=== PATIENT | male | born 1945 | race Caucasian/White ===

== ENCOUNTER 2021-10-10 11:17 | Day surgery (SDC) | payer OTHER ==
[~2021-10-10] VITALS: Ht 167.6 cm; Wt 65.8 kg
[2021-10-10] MEDS ORDERED: LIDOCAINE 2% 100 MG/5 ML UJET TP ONE (13:30)
[2021-10-10] MEDS ORDERED: MIDAZOLAM 2 MG/2 ML VIAL ONE (13:36)
[2021-10-10] MEDS: fentaNYL citrate 0.05 MG/ML VIAL ONE ×2 (13:55→14:30)
[2021-10-10] MEDS ORDERED: EPINEPHrine PFS 0.1 MG/ML SYR IVP ONE (14:52)
== END 2021-10-10 15:18 | disposition home or self-care (01) ==
LOC: MDS 11:17 → MMU 11:17 → MDS 15:18
PROVIDERS: ATTEND Internal Medicine Gastroenterology
DX: R19.5 Other fecal abnormalities (principal); D12.5 Benign neoplasm of sigmoid colon; K57.30 Diverticulosis of large intestine without perforation or abscess without bleeding; I10 Essential (primary) hypertension; Z79.899 Other long term (current) drug therapy; Z20.822 Contact with and (suspected) exposure to COVID-19
CPT/HCPCS: 45381; 45385; 87426; 88305; J0171; J3010; J2250